=== PATIENT | female | born 1960 | race Caucasian/White ===

== ENCOUNTER 2021-03-15 00:08 | Inpatient (IN) ==
[2021-03-15] MEDS ORDERED: Naloxone 0.4 MG/ML INJ IVP PRN (04:15)
[2021-03-15] MEDS ORDERED: Melatonin 3 MG TABLET PO PRN (04:15)
[2021-03-15 05:03] LABS: Hematocrit 42.4 % (35.3-44.9); Hemoglobin 14.9 g/dL (11.5-15.4); Immature Granulocytes % 0.4 % (0-4); Lymphocytes # 0.8 K/mcL (0.6-4.6); Lymphocytes % 26.7 %; Mean Corpuscular HGB Conc 35.1 g/dL (31.6-35.5); Mean Corpuscular Hemoglobin 33.8 pg (28.0-33.3); Mean Corpuscular Volume 96.1 fL (83.0-100.0); Mean Platelet Volume 9.7 fL (9.4-12.4); Monocytes # 0.3 K/mcL (0.0-1.3); Monocytes % 9.5 %; Neutrophils # 1.8 K/mcL (1.6-8.9); Platelet Count 183 K/mcL (140-400); Red Blood Count 4.41 M/mcL (3.82-4.97); Red Cell Distribution Width 13.8 % (11.5-14.5); Segmented Neutrophils % 63.4 %; White Blood Count 2.9 K/mcL (4.3-11.1)
[2021-03-15 05:16] LABS: Albumin 3.5 g/dL (3.5-5.7); Albumin/Globulin Ratio 1.1 (1.1-2.2); Bilirubin,Total 0.4 mg/dL (0.3-1.0); Globulin 3.2 g/dL (2.4-3.5); Magnesium 2.2 mg/dL (1.6-2.6); Phosphorous 4.1 mg/dL (2.7-4.5); Potassium 4.5 mEq/L (3.5-5.1); Total Protein 6.7 g/dL (6.4-8.9)
[2021-03-15] MEDS ORDERED: 0.9 % Sodium Chloride 1,000 ML IVC SCH (05:45)
[2021-03-15] MEDS: *HR* Enoxaparin 40 MG/0.4 ML SYRINGE SQ SCH (06:24)
[2021-03-15] MEDS ORDERED: Remdesivir 200 MG in 0.9 % Sodium Chloride 100 ML IVPB ONE (07:00)
[2021-03-15] MEDS: Aspirin 81 MG TAB.CHEW PO SCH (08:10)
[2021-03-15] MEDS: Ipratropium 1 PUFF INHALER IH SCH ×3 (11:48→20:43)
[2021-03-16 01:50] LABS: Hematocrit 41.7 % (35.3-44.9); Hemoglobin 13.9 g/dL (11.5-15.4); Mean Corpuscular HGB Conc 33.3 g/dL (31.6-35.5); Mean Corpuscular Hemoglobin 32.1 pg (28.0-33.3); Mean Corpuscular Volume 96.3 fL (83.0-100.0); Mean Platelet Volume 9.5 fL (9.4-12.4); Platelet Count 203 K/mcL (140-400); Red Blood Count 4.33 M/mcL (3.82-4.97); Red Cell Distribution Width 13.8 % (11.5-14.5)
[2021-03-16 02:10] LABS: BUN/Creatinine Ratio 31 (6-26); Blood Urea Nitrogen 29 mg/dL (8-23); Calcium 8.3 mg/dL (8.6-10.3); Carbon Dioxide 21 mEq/L (23-29); Chloride 108 mEq/L (98-107); Glucose 128 mg/dL (70-105); Osmolality,Calculated 287 (280-300); Sodium 135 mEq/L (136-145); eGFR For African Americans > 60 (> 60); eGFR For Non-African Americans > 60 (> 60)
[2021-03-16 02:11] LABS: Albumin 3.4 g/dL (3.5-5.7); Albumin/Globulin Ratio 1.1 (1.1-2.2); Bilirubin,Direct 0.2 mg/dL (0.0-0.2); Bilirubin,Indirect 0.2 mg/dL (0.0-1.0); Bilirubin,Total 0.4 mg/dL (0.3-1.0); Total Protein 6.4 g/dL (6.4-8.9)
[2021-03-16] MEDS: Ipratropium 1 PUFF INHALER IH SCH ×4 (04:09→20:34)
[2021-03-16] MEDS: *HR* Enoxaparin 40 MG/0.4 ML SYRINGE SQ SCH (05:52)
[2021-03-16] MEDS: Remdesivir 100 MG in 0.9 % Sodium Chloride 100 ML IVPB SCH (05:52)
[2021-03-16] MEDS ORDERED: Nicotine 21 MG PATCH.TD24 TD PRN (12:38)
[2021-03-16] MEDS ORDERED: Furosemide 20 MG/2 ML VIAL IVP ONE ×2 (13:56→15:45)
[2021-03-16] MEDS ORDERED: Dexmedetomidine HCl 400 MCG/100 ML MLS IVC ONE (16:08)
[2021-03-16] MEDS: Aspirin 81 MG TAB.CHEW PO SCH (16:45)
[2021-03-16] MEDS: Dexmedetomidine HCl 400 MCG/100 ML MLS IVC SCH (16:45)
[2021-03-16] MEDS: Metoprolol XL (24 HR) Succ 25 MG TAB.ER.24H PO SCH (17:02)
[2021-03-16] MEDS: QUEtiapine Fumarate 25 MG TABLET PO SCH (22:34)
[2021-03-16] MEDS: lamoTRIgine 25 MG TABLET PO SCH (22:34)
[2021-03-17] MEDS: Ipratropium 1 PUFF INHALER IH SCH ×4 (03:41→20:21)
[2021-03-17] MEDS: *HR* Enoxaparin 40 MG/0.4 ML SYRINGE SQ SCH (05:41)
[2021-03-17] MEDS: Loratadine 10 MG TABLET PO SCH (08:07)
[2021-03-17] MEDS: Aspirin 81 MG TAB.CHEW PO SCH (08:07)
[2021-03-17] MEDS: Cholecalciferol (D-3) 1,000 UNIT (25MCG) TABLET PO SCH (08:07)
[2021-03-17] MEDS: Furosemide 20 MG/2 ML VIAL IVP SCH (08:07)
[2021-03-17] MEDS: Venlafaxine XR (24 HR) 150 MG CAP.ER.24H PO SCH (08:07)
[2021-03-17] MEDS: lamoTRIgine 25 MG TABLET PO SCH ×2 (08:07→22:01)
[2021-03-17] MEDS: Remdesivir 100 MG in 0.9 % Sodium Chloride 100 ML IVPB SCH (08:14)
[2021-03-17] MEDS: Fluticasone Propionate Nasal 50 MCG/SPRAY BOTTLE NS SCH (08:14)
[2021-03-17 10:51] LABS: Hematocrit 42.7 % (35.3-44.9); Hemoglobin 14.9 g/dL (11.5-15.4); Immature Granulocytes % 0.3 % (0-4); Lymphocytes # 1.2 K/mcL (0.6-4.6); Lymphocytes % 18.1 %; Mean Corpuscular HGB Conc 34.9 g/dL (31.6-35.5); Mean Corpuscular Hemoglobin 33.3 pg (28.0-33.3); Mean Corpuscular Volume 95.5 fL (83.0-100.0); Mean Platelet Volume 9.5 fL (9.4-12.4); Monocytes # 0.9 K/mcL (0.0-1.3); Monocytes % 14.1 %; Neutrophils # 4.4 K/mcL (1.6-8.9); Platelet Count 237 K/mcL (140-400); Red Blood Count 4.47 M/mcL (3.82-4.97); Red Cell Distribution Width 13.8 % (11.5-14.5); Segmented Neutrophils % 67.5 %
[2021-03-17 10:56] LABS: White Blood Count 6.5 K/mcL (4.3-11.1)
[2021-03-17 11:12] LABS: Alanine Aminotransferase 10 Units/L (7-52); Albumin 3.5 g/dL (3.5-5.7); Albumin/Globulin Ratio 1.2 (1.1-2.2); Alkaline Phosphatase 97 Units/L (34-104); Aspartate Amino Transferase 29 Units/L (13-39); BUN/Creatinine Ratio 40 (6-26); Bilirubin,Direct 0.2 mg/dL (0.0-0.2); Bilirubin,Indirect 0.3 mg/dL (0.0-1.0); Bilirubin,Total 0.5 mg/dL (0.3-1.0); Blood Urea Nitrogen 36 mg/dL (8-23); Calcium 8.4 mg/dL (8.6-10.3); Carbon Dioxide 26 mEq/L (23-29); Chloride 101 mEq/L (98-107); Glucose 131 mg/dL (70-105); Osmolality,Calculated 290 (280-300); Potassium 4.3 mEq/L (3.5-5.1); Sodium 135 mEq/L (136-145); Total Protein 6.5 g/dL (6.4-8.9); eGFR For African Americans > 60 (> 60); eGFR For Non-African Americans > 60 (> 60)
[2021-03-17] MEDS: Gabapentin 300 MG CAPSULE PO SCH ×2 (13:41→22:01)
[2021-03-17] MEDS: Dexmedetomidine HCl 400 MCG/100 ML MLS IVC SCH (18:15)
[2021-03-17] MEDS: Metoprolol XL (24 HR) Succ 25 MG TAB.ER.24H PO SCH (18:20)
[2021-03-17] MEDS: QUEtiapine Fumarate 25 MG TABLET PO SCH (22:02)
[2021-03-18] MEDS: Ipratropium 1 PUFF INHALER IH SCH ×4 (03:48→20:41)
[2021-03-18] MEDS: *HR* Enoxaparin 40 MG/0.4 ML SYRINGE SQ SCH (04:20)
[2021-03-18 04:59] LABS: Hematocrit 42.8 % (35.3-44.9); Hemoglobin 14.8 g/dL (11.5-15.4); Immature Granulocytes % 0.5 % (0-4); Lymphocytes # 1.1 K/mcL (0.6-4.6); Lymphocytes % 18.3 %; Mean Corpuscular HGB Conc 34.6 g/dL (31.6-35.5); Mean Corpuscular Volume 95.5 fL (83.0-100.0); Mean Platelet Volume 9.5 fL (9.4-12.4); Monocytes # 0.7 K/mcL (0.0-1.3); Neutrophils # 4.3 K/mcL (1.6-8.9); Platelet Count 251 K/mcL (140-400); Red Blood Count 4.48 M/mcL (3.82-4.97); Red Cell Distribution Width 13.6 % (11.5-14.5); Segmented Neutrophils % 69.2 %; White Blood Count 6.2 K/mcL (4.3-11.1)
[2021-03-18 05:18] LABS: BUN/Creatinine Ratio 44 (6-26); Blood Urea Nitrogen 35 mg/dL (8-23); Calcium 8.1 mg/dL (8.6-10.3); Carbon Dioxide 24 mEq/L (23-29); Chloride 105 mEq/L (98-107); Glucose 143 mg/dL (70-105); Osmolality,Calculated 286 (280-300); Potassium 4.7 mEq/L (3.5-5.1); Sodium 133 mEq/L (136-145); eGFR For African Americans > 60 (> 60); eGFR For Non-African Americans > 60 (> 60)
[2021-03-18 05:19] LABS: Albumin 3.5 g/dL (3.5-5.7); Albumin/Globulin Ratio 1.2 (1.1-2.2); Bilirubin,Direct 0.1 mg/dL (0.0-0.2); Bilirubin,Indirect 0.4 mg/dL (0.0-1.0); Bilirubin,Total 0.5 mg/dL (0.3-1.0); Globulin 2.9 g/dL (2.4-3.5); Total Protein 6.4 g/dL (6.4-8.9)
[2021-03-18] MEDS: Venlafaxine XR (24 HR) 150 MG CAP.ER.24H PO SCH (08:11)
[2021-03-18] MEDS: lamoTRIgine 25 MG TABLET PO SCH ×2 (08:11→20:41)
[2021-03-18] MEDS: Gabapentin 300 MG CAPSULE PO SCH ×3 (08:11→20:38)
[2021-03-18] MEDS: clonazePAM 0.5 MG TABLET PO PRN (08:11)
[2021-03-18] MEDS: Cholecalciferol (D-3) 1,000 UNIT (25MCG) TABLET PO SCH (08:11)
[2021-03-18] MEDS: Remdesivir 100 MG in 0.9 % Sodium Chloride 100 ML IVPB SCH (08:12)
[2021-03-18] MEDS: Aspirin 81 MG TAB.CHEW PO SCH (08:12)
[2021-03-18] MEDS: Furosemide 20 MG/2 ML VIAL IVP SCH (08:12)
[2021-03-18] MEDS: Loratadine 10 MG TABLET PO SCH (08:12)
[2021-03-18] MEDS: Fluticasone Propionate Nasal 50 MCG/SPRAY BOTTLE NS SCH (08:13)
[2021-03-18] MEDS: Dexmedetomidine HCl 400 MCG/100 ML MLS IVC SCH (16:00)
[2021-03-18] MEDS: Metoprolol XL (24 HR) Succ 25 MG TAB.ER.24H PO SCH (17:32)
[2021-03-18] MEDS: QUEtiapine Fumarate 25 MG TABLET PO SCH (20:41)
[2021-03-19 02:55] LABS: Hematocrit 42.5 % (35.3-44.9); Hemoglobin 14.8 g/dL (11.5-15.4); Immature Granulocytes % 0.6 % (0-4); Lymphocytes # 1.2 K/mcL (0.6-4.6); Lymphocytes % 17.1 %; Mean Corpuscular HGB Conc 34.8 g/dL (31.6-35.5); Mean Corpuscular Hemoglobin 32.7 pg (28.0-33.3); Mean Platelet Volume 9.7 fL (9.4-12.4); Monocytes # 0.8 K/mcL (0.0-1.3); Monocytes % 11.1 %; Neutrophils # 4.9 K/mcL (1.6-8.9); Platelet Count 239 K/mcL (140-400); Red Blood Count 4.52 M/mcL (3.82-4.97); Red Cell Distribution Width 13.2 % (11.5-14.5); Segmented Neutrophils % 71.2 %; White Blood Count 6.9 K/mcL (4.3-11.1)
[2021-03-19 03:19] LABS: BUN/Creatinine Ratio 44 (6-26); Blood Urea Nitrogen 34 mg/dL (8-23); Calcium 8.2 mg/dL (8.6-10.3); Carbon Dioxide 24 mEq/L (23-29); Chloride 104 mEq/L (98-107); Glucose 143 mg/dL (70-105); Osmolality,Calculated 282 (280-300); Potassium 4.6 mEq/L (3.5-5.1); Sodium 131 mEq/L (136-145); eGFR For African Americans > 60 (> 60); eGFR For Non-African Americans > 60 (> 60)
[2021-03-19] MEDS: Ipratropium 1 PUFF INHALER IH SCH ×4 (03:41→20:00)
[2021-03-19] MEDS: *HR* Enoxaparin 40 MG/0.4 ML SYRINGE SQ SCH (06:44)
[2021-03-19] MEDS: Fluticasone Propionate Nasal 50 MCG/SPRAY BOTTLE NS SCH (10:00)
[2021-03-19] MEDS: Furosemide 20 MG/2 ML VIAL IVP SCH (10:31)
[2021-03-19] MEDS: lamoTRIgine 25 MG TABLET PO SCH ×2 (10:31→21:23)
[2021-03-19] MEDS: Cholecalciferol (D-3) 1,000 UNIT (25MCG) TABLET PO SCH (10:31)
[2021-03-19] MEDS: Remdesivir 100 MG in 0.9 % Sodium Chloride 100 ML IVPB SCH (10:31)
[2021-03-19] MEDS: Aspirin 81 MG TAB.CHEW PO SCH (10:32)
[2021-03-19] MEDS: Venlafaxine XR (24 HR) 150 MG CAP.ER.24H PO SCH (10:32)
[2021-03-19] MEDS: Gabapentin 300 MG CAPSULE PO SCH ×3 (10:32→21:23)
[2021-03-19] MEDS: Loratadine 10 MG TABLET PO SCH (10:32)
[2021-03-19] MEDS: Dexmedetomidine HCl 400 MCG/100 ML MLS IVC SCH (10:34)
[2021-03-19 11:04] LABS: Magnesium 2.7 mg/dL (1.6-2.6); Phosphorous 3.2 mg/dL (2.7-4.5)
[2021-03-19] MEDS ORDERED: D10% in Water 500 ML IVC PRN (11:44)
[2021-03-19] MEDS ORDERED: *HR* Dextrose 50 % in Water (Syg) 50 ML SYRINGE IVP PRN (11:46)
[2021-03-19] MEDS ORDERED: D5% in Water 1,000 ML IVC PRN (11:46)
[2021-03-19] MEDS ORDERED: Dextrose Gel 15 GM/37.5 ML TUBE PO PRN ×2 (11:46)
[2021-03-19] MEDS: Insulin LISPRO 300 UNITS/3 ML VIAL SUBQ SCH ×3 (13:02→21:31)
[2021-03-19] MEDS ORDERED: Lidocaine -MPF 1% 5 ML AMPUL INFILT ONE (16:17)
[2021-03-19] MEDS ORDERED: Clinimix 5%-20% SOLUTION 2,000 ML with MVI, adult with vitamin K 10 ML, Sodium Phosph... IVC SCH ×2 (17:00)
[2021-03-19] MEDS ORDERED: Nitroglycerin 0.4 MG TAB.SUBL SL PRN (18:47)
[2021-03-19] MEDS: Metoprolol XL (24 HR) Succ 25 MG TAB.ER.24H PO SCH (18:52)
[2021-03-19] MEDS: Fat Emulsion 250 ML IVPB SCH (18:56)
[2021-03-19] MEDS: QUEtiapine Fumarate 25 MG TABLET PO SCH (21:23)
[2021-03-19] MEDS: Temazepam 15 MG CAPSULE PO SCH (21:23)
[2021-03-19] MEDS: BuPROPion SR (12 HR) 150 MG TABLET PO SCH (21:23)
[2021-03-20] MEDS: Insulin LISPRO 300 UNITS/3 ML VIAL SUBQ SCH ×6 (01:47→21:12)
[2021-03-20] MEDS: Ipratropium 1 PUFF INHALER IH SCH ×4 (03:56→20:11)
[2021-03-20] MEDS: *HR* Enoxaparin 40 MG/0.4 ML SYRINGE SQ SCH (05:23)
[2021-03-20] MEDS: Dexmedetomidine HCl 400 MCG/100 ML MLS IVC SCH (09:21)
[2021-03-20] MEDS: lamoTRIgine 25 MG TABLET PO SCH ×2 (09:29→21:11)
[2021-03-20] MEDS: Gabapentin 300 MG CAPSULE PO SCH ×3 (09:29→21:23)
[2021-03-20] MEDS: Cholecalciferol (D-3) 1,000 UNIT (25MCG) TABLET PO SCH (09:29)
[2021-03-20] MEDS: Furosemide 20 MG/2 ML VIAL IVP SCH (09:29)
[2021-03-20] MEDS: BuPROPion SR (12 HR) 150 MG TABLET PO SCH ×2 (09:29→21:11)
[2021-03-20] MEDS: Aspirin Enteric Coated 81 MG Tablet PO SCH (09:29)
[2021-03-20] MEDS: Venlafaxine XR (24 HR) 150 MG CAP.ER.24H PO SCH (09:29)
[2021-03-20] MEDS: Loratadine 10 MG TABLET PO SCH (09:29)
[2021-03-20] MEDS: Fluticasone Propionate Nasal 50 MCG/SPRAY BOTTLE NS SCH (09:55)
[2021-03-20 10:19] LABS: Alanine Aminotransferase 7 Units/L (7-52); Albumin 3.3 g/dL (3.5-5.7); Albumin/Globulin Ratio 1.1 (1.1-2.2); Alkaline Phosphatase 95 Units/L (34-104); Aspartate Amino Transferase 17 Units/L (13-39); BUN/Creatinine Ratio 42 (6-26); Bilirubin,Total 0.6 mg/dL (0.3-1.0); Blood Urea Nitrogen 29 mg/dL (8-23); Calcium 8.2 mg/dL (8.6-10.3); Carbon Dioxide 26 mEq/L (23-29); Chloride 100 mEq/L (98-107); Glucose 159 mg/dL (70-105); Magnesium 2.6 mg/dL (1.6-2.6); Osmolality,Calculated 285 (280-300); Phosphorous 2.5 mg/dL (2.7-4.5); Sodium 133 mEq/L (136-145); Total Protein 6.3 g/dL (6.4-8.9); eGFR For African Americans > 60 (> 60); eGFR For Non-African Americans > 60 (> 60)
[2021-03-20] MEDS ORDERED: Clinimix 5%-20% SOLUTION 2,000 ML, Parenteral Amino Acid 10% 0 ML with MVI, adult with... IVC SCH (17:00)
[2021-03-20] MEDS: Metoprolol XL (24 HR) Succ 25 MG TAB.ER.24H PO SCH (17:28)
[2021-03-20] MEDS: Clinimix 5%-20% SOLUTION 2,000 ML with MVI, adult with vitamin K 10 ML, Sodium Phosph... IVC SCH (17:46)
[2021-03-20] MEDS: QUEtiapine Fumarate 25 MG TABLET PO SCH (21:11)
[2021-03-20] MEDS: Temazepam 15 MG CAPSULE PO SCH (21:11)
[2021-03-21 03:17] LABS: Hematocrit 42.7 % (35.3-44.9); Hemoglobin 14.9 g/dL (11.5-15.4); Mean Corpuscular HGB Conc 34.9 g/dL (31.6-35.5); Mean Corpuscular Hemoglobin 32.5 pg (28.0-33.3); Mean Corpuscular Volume 93.2 fL (83.0-100.0); Mean Platelet Volume 10.4 fL (9.4-12.4); Platelet Count 261 K/mcL (140-400); Red Blood Count 4.58 M/mcL (3.82-4.97); Red Cell Distribution Width 12.8 % (11.5-14.5); White Blood Count 8.9 K/mcL (4.3-11.1)
[2021-03-21 03:23] LABS: Alanine Aminotransferase 7 Units/L (7-52); Albumin 3.4 g/dL (3.5-5.7); Albumin/Globulin Ratio 1.1 (1.1-2.2); Alkaline Phosphatase 91 Units/L (34-104); Aspartate Amino Transferase 18 Units/L (13-39); BUN/Creatinine Ratio 43 (6-26); Bilirubin,Total 0.6 mg/dL (0.3-1.0); Blood Urea Nitrogen 32 mg/dL (8-23); Calcium 8.6 mg/dL (8.6-10.3); Carbon Dioxide 28 mEq/L (23-29); Chloride 99 mEq/L (98-107); Glucose 196 mg/dL (70-105); Magnesium 2.6 mg/dL (1.6-2.6); Osmolality,Calculated 290 (280-300); Phosphorous 3.1 mg/dL (2.7-4.5); Sodium 134 mEq/L (136-145); Total Protein 6.4 g/dL (6.4-8.9); eGFR For African Americans > 60 (> 60); eGFR For Non-African Americans > 60 (> 60)
[2021-03-21 03:24] LABS: C-Reactive Protein 52 mg/L (Less than 10); Lactate Dehydrogenase 544 Units/L (140-271)
[2021-03-21] MEDS: Ipratropium 1 PUFF INHALER IH SCH ×4 (04:02→19:43)
[2021-03-21] MEDS: Insulin LISPRO 300 UNITS/3 ML VIAL SUBQ SCH ×6 (04:07→21:00)
[2021-03-21] MEDS: *HR* Enoxaparin 40 MG/0.4 ML SYRINGE SQ SCH (06:08)
[2021-03-21] MEDS: lamoTRIgine 25 MG TABLET PO SCH ×2 (09:02→20:59)
[2021-03-21] MEDS: Cholecalciferol (D-3) 1,000 UNIT (25MCG) TABLET PO SCH (09:02)
[2021-03-21] MEDS: Gabapentin 300 MG CAPSULE PO SCH ×3 (09:02→21:00)
[2021-03-21] MEDS: BuPROPion SR (12 HR) 150 MG TABLET PO SCH ×2 (09:02→20:59)
[2021-03-21] MEDS: Venlafaxine XR (24 HR) 150 MG CAP.ER.24H PO SCH (09:02)
[2021-03-21] MEDS: Loratadine 10 MG TABLET PO SCH (09:03)
[2021-03-21] MEDS: Aspirin Enteric Coated 81 MG Tablet PO SCH (09:03)
[2021-03-21] MEDS: Furosemide 20 MG/2 ML VIAL IVP SCH (09:03)
[2021-03-21] MEDS: Fluticasone Propionate Nasal 50 MCG/SPRAY BOTTLE NS SCH (09:03)
[2021-03-21] MEDS: Dexamethasone Sodium Phos/PF 10 MG/ML VIAL IVP SCH (09:03)
[2021-03-21] MEDS ORDERED: Isovue-370 500 ML BOTTLE IVP ONE (10:22)
[2021-03-21] MEDS: Clinimix 5%-20% SOLUTION 2,000 ML with MVI, adult with vitamin K 10 ML, Sodium Phosph... IVC SCH (16:55)
[2021-03-21] MEDS ORDERED: Clinimix 5%-20% SOLUTION 2,000 ML with MVI, adult with vitamin K 10 ML, Sodium Phosph... IVC SCH (17:00)
[2021-03-21] MEDS: clonazePAM 0.5 MG TABLET PO PRN (17:30)
[2021-03-21] MEDS: Metoprolol XL (24 HR) Succ 25 MG TAB.ER.24H PO SCH (17:30)
[2021-03-21] MEDS: QUEtiapine Fumarate 25 MG TABLET PO SCH (21:00)
[2021-03-21] MEDS: Temazepam 15 MG CAPSULE PO SCH (21:00)
[2021-03-22] MEDS: Insulin LISPRO 300 UNITS/3 ML VIAL SUBQ SCH ×7 (00:46→23:44)
[2021-03-22] MEDS: Ipratropium 1 PUFF INHALER IH SCH ×4 (03:37→21:10)
[2021-03-22 04:43] LABS: Hematocrit 43.6 % (35.3-44.9); Hemoglobin 15.3 g/dL (11.5-15.4); Mean Corpuscular HGB Conc 35.1 g/dL (31.6-35.5); Mean Corpuscular Hemoglobin 32.8 pg (28.0-33.3); Mean Corpuscular Volume 93.6 fL (83.0-100.0); Mean Platelet Volume 10.5 fL (9.4-12.4); Platelet Count 305 K/mcL (140-400); Red Blood Count 4.66 M/mcL (3.82-4.97); Red Cell Distribution Width 12.8 % (11.5-14.5)
[2021-03-22 05:00] LABS: Alanine Aminotransferase 6 Units/L (7-52); Albumin 3.4 g/dL (3.5-5.7); Albumin/Globulin Ratio 1.1 (1.1-2.2); Alkaline Phosphatase 99 Units/L (34-104); Aspartate Amino Transferase 20 Units/L (13-39); BUN/Creatinine Ratio 45 (6-26); Bilirubin,Total 0.7 mg/dL (0.3-1.0); Blood Urea Nitrogen 31 mg/dL (8-23); Calcium 8.7 mg/dL (8.6-10.3); Carbon Dioxide 28 mEq/L (23-29); Chloride 97 mEq/L (98-107); Globulin 3.2 g/dL (2.4-3.5); Glucose 80 mg/dL (70-105); Magnesium 2.1 mg/dL (1.6-2.6); Osmolality,Calculated 282 (280-300); Potassium 3.7 mEq/L (3.5-5.1); Sodium 133 mEq/L (136-145); Total Protein 6.6 g/dL (6.4-8.9); eGFR For African Americans > 60 (> 60); eGFR For Non-African Americans > 60 (> 60)
[2021-03-22] MEDS ORDERED: *HR* Midazolam HCl 2 MG/2 ML VIAL IVP ONE (05:53)
[2021-03-22] MEDS ORDERED: *HR* Rocuronium Bromide 50 MG/5 ML VIAL IVP ONE (05:53)
[2021-03-22] MEDS ORDERED: *HR* Succinylcholine 200 MG/10 ML VIAL IVP ONE (05:53)
[2021-03-22] MEDS ORDERED: *HR* Etomidate 40 MG/20 ML VIAL IVP ONE (05:53)
[2021-03-22] MEDS ORDERED: *HR* Midazolam HCl 5 MG/5 ML VIAL IVP ONE (05:53)
[2021-03-22] MEDS: *HR* Enoxaparin 40 MG/0.4 ML SYRINGE SQ SCH (06:04)
[2021-03-22] MEDS: Loratadine 10 MG TABLET PO SCH (07:32)
[2021-03-22] MEDS: Venlafaxine XR (24 HR) 150 MG CAP.ER.24H PO SCH (07:32)
[2021-03-22] MEDS: Aspirin Enteric Coated 81 MG Tablet PO SCH (07:32)
[2021-03-22] MEDS: lamoTRIgine 25 MG TABLET PO SCH ×2 (07:33→20:56)
[2021-03-22] MEDS: Cholecalciferol (D-3) 1,000 UNIT (25MCG) TABLET PO SCH (07:33)
[2021-03-22] MEDS: Fluticasone Propionate Nasal 50 MCG/SPRAY BOTTLE NS SCH (07:33)
[2021-03-22] MEDS: Gabapentin 300 MG CAPSULE PO SCH ×3 (07:33→20:56)
[2021-03-22] MEDS: BuPROPion SR (12 HR) 150 MG TABLET PO SCH ×2 (07:33→20:56)
[2021-03-22] MEDS: Midazolam HCl 50 MG/100 ML IV.SOLN IVC SCH ×2 (08:58→15:52)
[2021-03-22] MEDS: FentaNYL (PF) 1,000 MCG/100 ML IV.SOLN IVC SCH ×3 (08:59→20:55)
[2021-03-22] MEDS: Cisatracurium 200 MG in 0.9 % Sodium Chloride 180 ML IVC SCH ×2 (08:59→20:53)
[2021-03-22] MEDS ORDERED: *HR* Midazolam HCl 2 MG/2 ML VIAL ONE (09:02)
[2021-03-22] MEDS: Dexamethasone Sodium Phos/PF 10 MG/ML VIAL IVP SCH (09:47)
[2021-03-22] MEDS: Furosemide 20 MG/2 ML VIAL IVP SCH (09:47)
[2021-03-22] MEDS ORDERED: Artificial Tears SOLN 15 ML BOTTLE BOTH EYES PRN (10:05)
[2021-03-22] MEDS ORDERED: Naloxone 0.4 MG/ML INJ IVP PRN (10:05)
[2021-03-22] MEDS ORDERED: Furosemide 20 MG/2 ML VIAL IVP ONE (10:10)
[2021-03-22 11:14] LABS: ABG Base Excess 1 mEq/L (-2 to 3); ABG HCO3 30 mEq/L (21-27); ABG Oxygen Saturation 91 % (95-98); ABG PCO2 65 mmHg (35-45); ABG PH 7.27 pH Units (7.32-7.45); ABG PO2 71 mmHg (85-104); ABG TCO2 32 mEq/L (20-26); Blood Gas Modality ASSIST CONTROL; Blood Gas VT 400 cc
[2021-03-22] MEDS: Chlorhexidine Rinse 15 ML MOUTHWASH MM SCH ×2 (11:18→20:55)
[2021-03-22] MEDS: Pantoprazole 40 MG VIAL IVP SCH (11:18)
[2021-03-22] MEDS: Artificial Tears SOLN 15 ML BOTTLE BOTH EYES SCH ×4 (11:19→23:44)
[2021-03-22] MEDS ORDERED: Clinimix 5%-20% SOLUTION 2,000 ML with MVI, adult with vitamin K 10 ML, Sodium Phosph... IVC SCH (17:00)
[2021-03-22] MEDS: Metoprolol XL (24 HR) Succ 25 MG TAB.ER.24H PO SCH (18:30)
[2021-03-22] MEDS: Temazepam 15 MG CAPSULE PO SCH (20:56)
[2021-03-22] MEDS: QUEtiapine Fumarate 25 MG TABLET PO SCH (20:56)
[2021-03-23 00:12] LABS: ABG Base Excess 1 mEq/L (-2 to 3); ABG HCO3 32 mEq/L (21-27); ABG Oxygen Saturation 91 % (95-98); ABG PCO2 79 mmHg (35-45); ABG PH 7.21 pH Units (7.32-7.45); ABG PO2 77 mmHg (85-104); ABG TCO2 34 mEq/L (20-26); Blood Gas Modality ASSIST CONTROL; Blood Gas VT 360 cc
[2021-03-23] MEDS: Ipratropium 1 PUFF INHALER IH SCH ×4 (03:03→21:18)
[2021-03-23] MEDS: Artificial Tears SOLN 15 ML BOTTLE BOTH EYES SCH ×5 (03:24→20:15)
[2021-03-23] MEDS: Insulin LISPRO 300 UNITS/3 ML VIAL SUBQ SCH ×5 (03:24→21:14)
[2021-03-23] MEDS: Midazolam HCl 50 MG/100 ML IV.SOLN IVC SCH ×2 (03:42→12:47)
[2021-03-23] MEDS: FentaNYL (PF) 1,000 MCG/100 ML IV.SOLN IVC SCH ×4 (03:43→22:45)
[2021-03-23 03:54] LABS: VBG Ionized Calcium 1.03 mmol/L (1.15-1.35)
[2021-03-23 03:57] LABS: Basophils % 0.2 %; Eosinophils % 0.1 %; Hematocrit 36.7 % (35.3-44.9); Hemoglobin 12.2 g/dL (11.5-15.4); Immature Granulocytes % 1.4 % (0-4); Lymphocytes # 0.7 K/mcL (0.6-4.6); Lymphocytes % 6.2 %; Mean Corpuscular HGB Conc 33.2 g/dL (31.6-35.5); Mean Corpuscular Hemoglobin 32.9 pg (28.0-33.3); Mean Corpuscular Volume 98.9 fL (83.0-100.0); Mean Platelet Volume 10.8 fL (9.4-12.4); Monocytes # 0.5 K/mcL (0.0-1.3); Monocytes % 4.4 %; Neutrophils # 10.2 K/mcL (1.6-8.9); Platelet Count 227 K/mcL (140-400); Red Blood Count 3.71 M/mcL (3.82-4.97); Red Cell Distribution Width 13.2 % (11.5-14.5); Segmented Neutrophils % 87.7 %; White Blood Count 11.6 K/mcL (4.3-11.1)
[2021-03-23 04:43] LABS: ABG Base Excess 3 mEq/L (-2 to 3); ABG HCO3 33 mEq/L (21-27); ABG Oxygen Saturation 100 % (95-98); ABG PCO2 75 mmHg (35-45); ABG PH 7.25 pH Units (7.32-7.45); ABG PO2 224 mmHg (85-104); ABG TCO2 35 mEq/L (20-26); Blood Gas Modality ASSIST CONTROL; Blood Gas VT 360 cc
[2021-03-23] MEDS: *HR* Enoxaparin 40 MG/0.4 ML SYRINGE SQ SCH ×2 (05:07→20:15)
[2021-03-23] MEDS: Calcium Gluconate 1gm/50mL 1 GM/50 ML BAG IVPB SCH ×2 (05:42→06:31)
[2021-03-23] MEDS: Loratadine 10 MG TABLET PO SCH (07:40)
[2021-03-23] MEDS: BuPROPion SR (12 HR) 150 MG TABLET PO SCH ×2 (07:40→20:16)
[2021-03-23] MEDS: Gabapentin 300 MG CAPSULE PO SCH ×3 (07:40→20:16)
[2021-03-23] MEDS: Chlorhexidine Rinse 15 ML MOUTHWASH MM SCH ×2 (07:40→20:15)
[2021-03-23] MEDS: lamoTRIgine 25 MG TABLET PO SCH ×2 (07:40→20:16)
[2021-03-23] MEDS: Furosemide 40 MG/4 ML VIAL IVP SCH (07:41)
[2021-03-23] MEDS: Dexamethasone Sodium Phos/PF 10 MG/ML VIAL IVP SCH (07:41)
[2021-03-23] MEDS: Pantoprazole 40 MG VIAL IVP SCH (07:41)
[2021-03-23] MEDS: Cholecalciferol (D-3) 1,000 UNIT (25MCG) TABLET PO SCH (07:45)
[2021-03-23] MEDS: Cisatracurium 200 MG in 0.9 % Sodium Chloride 180 ML IVC SCH (08:30)
[2021-03-23 10:49] LABS: Alanine Aminotransferase 6 Units/L (7-52); Albumin 3.3 g/dL (3.5-5.7); Albumin/Globulin Ratio 1.1 (1.1-2.2); Alkaline Phosphatase 83 Units/L (34-104); Aspartate Amino Transferase 12 Units/L (13-39); BUN/Creatinine Ratio 39 (6-26); Bilirubin,Total 0.6 mg/dL (0.3-1.0); Blood Urea Nitrogen 32 mg/dL (8-23); Calcium 9.1 mg/dL (8.6-10.3); Carbon Dioxide 33 mEq/L (23-29); Chloride 97 mEq/L (98-107); Glucose 196 mg/dL (70-105); Magnesium 1.9 mg/dL (1.6-2.6); Osmolality,Calculated 292 (280-300); Phosphorous 3.2 mg/dL (2.7-4.5); Potassium 3.9 mEq/L (3.5-5.1); Sodium 135 mEq/L (136-145); Total Protein 6.3 g/dL (6.4-8.9); eGFR For African Americans > 60 (> 60); eGFR For Non-African Americans > 60 (> 60)
[2021-03-23] MEDS: Fluticasone Propionate Nasal 50 MCG/SPRAY BOTTLE NS SCH (12:39)
[2021-03-23] MEDS: Venlafaxine XR (24 HR) 150 MG CAP.ER.24H PO SCH (12:43)
[2021-03-23] MEDS: Aspirin Enteric Coated 81 MG Tablet PO SCH (12:43)
[2021-03-23] MEDS ORDERED: Clinimix 5%-20% SOLUTION 2,000 ML with MVI, adult with vitamin K 10 ML, Sodium Phosph... IVC SCH (17:00)
[2021-03-23] MEDS ORDERED: *HR* Metoprolol 5 MG/5 ML VIAL IVP SCH (18:00)
[2021-03-23] MEDS: Metoprolol XL (24 HR) Succ 25 MG TAB.ER.24H PO SCH (18:11)
[2021-03-23] MEDS: QUEtiapine Fumarate 25 MG TABLET PO SCH (20:16)
[2021-03-23] MEDS: Temazepam 15 MG CAPSULE PO SCH (20:16)
[2021-03-23] MEDS ORDERED: Ringers Solution, Lactated 500 ML IVC ONE ×2 (22:13→23:37)
[2021-03-23] MEDS ORDERED: Ringers Solution, Lactated 500 ML ONE (22:18)
[2021-03-24] MEDS: Cisatracurium 200 MG in 0.9 % Sodium Chloride 180 ML IVC SCH (01:48)
[2021-03-24] MEDS: Insulin LISPRO 300 UNITS/3 ML VIAL SUBQ SCH ×6 (01:49→20:11)
[2021-03-24] MEDS: Midazolam HCl 50 MG/100 ML IV.SOLN IVC SCH ×2 (01:50→13:38)
[2021-03-24] MEDS: Ipratropium 1 PUFF INHALER IH SCH ×4 (03:14→20:15)
[2021-03-24 04:11] LABS: ABG Base Excess -1 mEq/L (-2 to 3); ABG HCO3 29 mEq/L (21-27); ABG Oxygen Saturation 81 % (95-98); ABG PCO2 75 mmHg (35-45); ABG PO2 57 mmHg (85-104); ABG TCO2 32 mEq/L (20-26); Blood Gas VT 360 cc
[2021-03-24 04:19] LABS: Hematocrit 38.6 % (35.3-44.9); Hemoglobin 12.7 g/dL (11.5-15.4); Mean Corpuscular HGB Conc 32.9 g/dL (31.6-35.5); Mean Corpuscular Volume 100.3 fL (83.0-100.0); Mean Platelet Volume 11.1 fL (9.4-12.4); Platelet Count 231 K/mcL (140-400); Red Blood Count 3.85 M/mcL (3.82-4.97); Red Cell Distribution Width 13.2 % (11.5-14.5); White Blood Count 10.6 K/mcL (4.3-11.1)
[2021-03-24 04:40] LABS: Albumin 2.8 g/dL (3.5-5.7); Bilirubin,Total 0.5 mg/dL (0.3-1.0); Calcium 8.2 mg/dL (8.6-10.3); Globulin 2.8 g/dL (2.4-3.5); Magnesium 2.1 mg/dL (1.6-2.6); Phosphorous 4.7 mg/dL (2.7-4.5); Total Protein 5.6 g/dL (6.4-8.9)
[2021-03-24] MEDS: FentaNYL (PF) 1,000 MCG/100 ML IV.SOLN IVC SCH ×3 (05:56→19:35)
[2021-03-24] MEDS: Artificial Tears SOLN 15 ML BOTTLE BOTH EYES SCH ×6 (07:16→20:13)
[2021-03-24] MEDS: Dexamethasone Sodium Phos/PF 10 MG/ML VIAL IVP SCH (07:43)
[2021-03-24] MEDS: Pantoprazole 40 MG VIAL IVP SCH (07:43)
[2021-03-24] MEDS: Loratadine 10 MG TABLET PO SCH (07:43)
[2021-03-24] MEDS: lamoTRIgine 25 MG TABLET PO SCH ×2 (07:43→20:14)
[2021-03-24] MEDS: Aspirin 81 MG TAB.CHEW PO SCH (07:43)
[2021-03-24] MEDS: Furosemide 40 MG/4 ML VIAL IVP SCH (07:43)
[2021-03-24] MEDS: Cholecalciferol (D-3) 1,000 UNIT (25MCG) TABLET PO SCH (07:43)
[2021-03-24] MEDS: Chlorhexidine Rinse 15 ML MOUTHWASH MM SCH ×2 (07:43→20:13)
[2021-03-24] MEDS: Gabapentin 300 MG CAPSULE PO SCH (07:43)
[2021-03-24] MEDS: *HR* Enoxaparin 40 MG/0.4 ML SYRINGE SQ SCH ×2 (07:43→20:14)
[2021-03-24] MEDS: Fluticasone Propionate Nasal 50 MCG/SPRAY BOTTLE NS SCH (07:45)
[2021-03-24] MEDS: BuPROPion SR (12 HR) 150 MG TABLET PO SCH (07:45)
[2021-03-24] MEDS: Venlafaxine XR (24 HR) 150 MG CAP.ER.24H PO SCH (07:45)
[2021-03-24 08:15] LABS: ABG Base Excess -2 mEq/L (-2 to 3); ABG HCO3 30 mEq/L (21-27); ABG Oxygen Saturation 89 % (95-98); ABG PCO2 84 mmHg (35-45); ABG PH 7.16 pH Units (7.32-7.45); ABG PO2 75 mmHg (85-104); ABG TCO2 32 mEq/L (20-26)
[2021-03-24] MEDS: Norepinephrine 4 MG/254 ML IV.SOLN IVC SCH (11:59)
[2021-03-24] MEDS: Dexmedetomidine HCl 400 MCG/100 ML MLS IVC SCH ×3 (11:59→19:06)
[2021-03-24 14:23] LABS: ABG Base Excess -3 mEq/L (-2 to 3); ABG HCO3 26 mEq/L (21-27); ABG Oxygen Saturation 93 % (95-98); ABG PCO2 70 mmHg (35-45); ABG PH 7.19 pH Units (7.32-7.45); ABG PO2 87 mmHg (85-104); ABG TCO2 29 mEq/L (20-26); Blood Gas Modality ASSIST CONTROL; Blood Gas VT 400 cc
[2021-03-24] MEDS ORDERED: 0.9 % Sodium Chloride 1,000 ML ONE (14:28)
[2021-03-24] MEDS ORDERED: Clinimix 5%-20% SOLUTION 2,000 ML with MVI, adult with vitamin K 10 ML, Sodium Acetat... IVC SCH (17:00)
[2021-03-24 18:14] LABS: ABG Base Excess -3 mEq/L (-2 to 3); ABG HCO3 28 mEq/L (21-27); ABG Oxygen Saturation 99 % (95-98); ABG PCO2 78 mmHg (35-45); ABG PH 7.16 pH Units (7.32-7.45); ABG PO2 184 mmHg (85-104); ABG TCO2 30 mEq/L (20-26); Blood Gas Modality ASSIST CONTROL; Blood Gas VT 400 cc
[2021-03-24 19:59] LABS: ABG Base Excess -1 mEq/L (-2 to 3); ABG HCO3 30 mEq/L (21-27); ABG Oxygen Saturation 99 % (95-98); ABG PCO2 81 mmHg (35-45); ABG PH 7.17 pH Units (7.32-7.45); ABG PO2 211 mmHg (85-104); ABG TCO2 32 mEq/L (20-26); Blood Gas VT 420 cc
[2021-03-24] MEDS: Temazepam 15 MG CAPSULE PO SCH (20:13)
[2021-03-24] MEDS: QUEtiapine Fumarate 25 MG TABLET PO SCH (20:13)
[2021-03-24] MEDS: Gabapentin 300 MG CAPSULE GTUBE SCH (20:14)
[2021-03-24 21:22] LABS: ABG Base Excess -2 mEq/L (-2 to 3); ABG HCO3 29 mEq/L (21-27); ABG Oxygen Saturation 100 % (95-98); ABG PCO2 81 mmHg (35-45); ABG PH 7.16 pH Units (7.32-7.45); ABG PO2 223 mmHg (85-104); ABG TCO2 31 mEq/L (20-26); Blood Gas VT 450 cc
[2021-03-25] LABS: ABG Base Excess -2 mEq/L (-2 to 3); ABG HCO3 29 mEq/L (21-27); ABG Oxygen Saturation 100 % (95-98); ABG PCO2 79 mmHg (35-45); ABG PH 7.18 pH Units (7.32-7.45); ABG PO2 263 mmHg (85-104); ABG TCO2 32 mEq/L (20-26); Blood Gas VT 450 cc
[2021-03-25] MEDS: Insulin LISPRO 300 UNITS/3 ML VIAL SUBQ SCH ×7 (00:23→23:41)
[2021-03-25] MEDS: Artificial Tears SOLN 15 ML BOTTLE BOTH EYES SCH ×7 (00:23→23:43)
[2021-03-25] MEDS ORDERED: Sodium Bicarbonate 75 MEQ in 0.45 % Sodium Chloride 1,000 ML IVC SCH (01:00)
[2021-03-25 02:40] LABS: Hematocrit 36.8 % (35.3-44.9); Hemoglobin 12.5 g/dL (11.5-15.4); Mean Corpuscular Hemoglobin 33.5 pg (28.0-33.3); Mean Corpuscular Volume 98.7 fL (83.0-100.0); Mean Platelet Volume 11.1 fL (9.4-12.4); Platelet Count 266 K/mcL (140-400); Red Blood Count 3.73 M/mcL (3.82-4.97); White Blood Count 7.2 K/mcL (4.3-11.1)
[2021-03-25 02:53] LABS: Calcium 7.7 mg/dL (8.6-10.3); Phosphorous 4.5 mg/dL (2.7-4.5); Potassium 3.9 mEq/L (3.5-5.1)
[2021-03-25] MEDS: Norepinephrine 4 MG/254 ML IV.SOLN IVC SCH (03:06)
[2021-03-25] MEDS: Midazolam HCl 50 MG/100 ML IV.SOLN IVC SCH ×2 (03:07→17:26)
[2021-03-25] MEDS: Dexmedetomidine HCl 400 MCG/100 ML MLS IVC SCH ×3 (03:08→19:58)
[2021-03-25] MEDS: FentaNYL (PF) 1,000 MCG/100 ML IV.SOLN IVC SCH ×3 (03:08→22:26)
[2021-03-25] MEDS: Ipratropium 1 PUFF INHALER IH SCH ×4 (04:13→19:46)
[2021-03-25 04:22] LABS: ABG Base Excess -1 mEq/L (-2 to 3); ABG HCO3 29 mEq/L (21-27); ABG Oxygen Saturation 100 % (95-98); ABG PCO2 78 mmHg (35-45); ABG PH 7.18 pH Units (7.32-7.45); ABG PO2 303 mmHg (85-104); ABG TCO2 31 mEq/L (20-26); Blood Gas VT 450 cc
[2021-03-25] MEDS: Cisatracurium 200 MG in 0.9 % Sodium Chloride 180 ML IVC SCH (04:34)
[2021-03-25] MEDS ORDERED: Sodium Bicarbonate 150 MEQ in D5% in Water 1,000 ML IVC SCH (05:00)
[2021-03-25 06:17] LABS: VBG Ionized Calcium 1.14 mmol/L (1.15-1.35)
[2021-03-25] MEDS: lamoTRIgine 25 MG TABLET PO SCH ×2 (08:12→19:56)
[2021-03-25] MEDS: Cholecalciferol (D-3) 1,000 UNIT (25MCG) TABLET PO SCH (08:12)
[2021-03-25] MEDS: Gabapentin 300 MG CAPSULE GTUBE SCH ×2 (08:12→19:56)
[2021-03-25] MEDS: Aspirin 81 MG TAB.CHEW PO SCH (08:12)
[2021-03-25] MEDS: Pantoprazole 40 MG VIAL IVP SCH (08:13)
[2021-03-25] MEDS: *HR* Enoxaparin 40 MG/0.4 ML SYRINGE SQ SCH (08:13)
[2021-03-25] MEDS: Dexamethasone Sodium Phos/PF 10 MG/ML VIAL IVP SCH (08:14)
[2021-03-25] MEDS: Chlorhexidine Rinse 15 ML MOUTHWASH MM SCH ×2 (08:15→19:55)
[2021-03-25] MEDS ORDERED: Insulin DETEMIR 100 UNIT/ML X5UNITS SUBQ ONE (10:00)
[2021-03-25 15:29] LABS: ABG Base Excess 3 mEq/L (-2 to 3); ABG HCO3 32 mEq/L (21-27); ABG Oxygen Saturation 91 % (95-98); ABG PCO2 73 mmHg (35-45); ABG PH 7.25 pH Units (7.32-7.45); ABG PO2 74 mmHg (85-104); ABG TCO2 34 mEq/L (20-26); Blood Gas Modality ASSIST CONTROL; Blood Gas VT 450 cc
[2021-03-25 16:24] LABS: Amorphous Sediment,Urine Few per hpf (None-Few); Bilirubin,Urine Negative (Negative); Blood,Urine Moderate (Negative); Clarity,Urine Ex.Turbid (Clear); Color,Urine Yellow (Yellow); Glucose,Urine (UA) 200 mg/dL (Normal); Hyaline Casts,Urine Many per lpf (None Seen); Ketones,Urine Negative (Negative); Leukocyte Esterase,Urine Trace (Negative); Mucus,Urine Moderate per lpf (None-Few); Nitrite,Urine Negative (Negative); PH,Urine 5.5 pH Units (5.0-8.0); Protein,Urine 30 mg/dL (Neg-Trace); RBC,Urine 15-30 per hpf (0-3); Specific Gravity,Urine 1.013 (1.010-1.025); Squamous Epithelial Cell,Urine Few per hpf (None-Few); Urobilinogen,Urine Normal (Normal); WBC,Urine 50-100 per hpf (0-3)
[2021-03-25] MEDS ORDERED: Clinimix E 5%-15% SOLUTION 2,000 ML with MVI, adult with vitamin K 10 ML, ZN/CU/MN/SE... IVC SCH (17:00)
[2021-03-25] MEDS: Docusate Oral Soln 100 MG/10 ML UDC GTUBE SCH (19:55)
[2021-03-25] MEDS: QUEtiapine Fumarate 25 MG TABLET PO SCH (19:56)
[2021-03-25] MEDS ORDERED: *HR* Enoxaparin 30 MG/0.3 ML SYRINGE SQ SCH (21:00)
[2021-03-26] MEDS: Dexmedetomidine HCl 400 MCG/100 ML MLS IVC SCH ×5 (02:46→21:29)
[2021-03-26] MEDS: Midazolam HCl 50 MG/100 ML IV.SOLN IVC SCH ×3 (03:15→16:51)
[2021-03-26] MEDS: Ipratropium 1 PUFF INHALER IH SCH ×4 (03:42→19:57)
[2021-03-26] MEDS: Insulin LISPRO 300 UNITS/3 ML VIAL SUBQ SCH ×5 (03:45→20:11)
[2021-03-26] MEDS: Artificial Tears SOLN 15 ML BOTTLE BOTH EYES SCH ×5 (03:58→21:26)
[2021-03-26] MEDS ORDERED: Acetaminophen IV 500 MG/50 ML BAG IVPB ONE (04:00)
[2021-03-26 04:29] LABS: ABG Base Excess 3 mEq/L (-2 to 3); ABG HCO3 34 mEq/L (21-27); ABG Oxygen Saturation 80 % (95-98); ABG PCO2 90 mmHg (35-45); ABG PH 7.19 pH Units (7.32-7.45); ABG PO2 58 mmHg (85-104); ABG TCO2 37 mEq/L (20-26); Blood Gas VT 450 cc
[2021-03-26 05:04] LABS: Basophils % 0.2 %; Hematocrit 27.7 % (35.3-44.9); Immature Granulocytes % 1.1 % (0-4); Lymphocytes # 0.3 K/mcL (0.6-4.6); Lymphocytes % 6.3 %; Mean Corpuscular HGB Conc 32.9 g/dL (31.6-35.5); Mean Corpuscular Hemoglobin 32.9 pg (28.0-33.3); Mean Platelet Volume 11.1 fL (9.4-12.4); Monocytes # 0.8 K/mcL (0.0-1.3); Monocytes % 14.2 %; Neutrophils # 4.2 K/mcL (1.6-8.9); Platelet Count 158 K/mcL (140-400); Red Blood Count 2.77 M/mcL (3.82-4.97); Red Cell Distribution Width 13.1 % (11.5-14.5); Segmented Neutrophils % 78.2 %; White Blood Count 5.4 K/mcL (4.3-11.1)
[2021-03-26 05:11] LABS: Hemoglobin 9.1 g/dL (11.5-15.4)
[2021-03-26] MEDS: Cisatracurium 200 MG in 0.9 % Sodium Chloride 180 ML IVC SCH ×4 (05:13→20:00)
[2021-03-26] MEDS: FentaNYL (PF) 1,000 MCG/100 ML IV.SOLN IVC SCH ×4 (05:16→21:28)
[2021-03-26 05:27] LABS: Albumin 1.9 g/dL (3.5-5.7); Bilirubin,Direct 0.2 mg/dL (0.0-0.2); Bilirubin,Indirect 0.2 mg/dL (0.0-1.0); Bilirubin,Total 0.4 mg/dL (0.3-1.0); Calcium 5.8 mg/dL (8.6-10.3); Globulin 1.9 g/dL (2.4-3.5); Magnesium 1.6 mg/dL (1.6-2.6); Phosphorous 3.1 mg/dL (2.7-4.5); Potassium 3.5 mEq/L (3.5-5.1); Total Protein 3.8 g/dL (6.4-8.9); Uric Acid 2.7 mg/dL (2.3-7.6)
[2021-03-26 05:28] LABS: Platelet Estimate Normal (Normal)
[2021-03-26] MEDS ORDERED: Calcium Gluconate 1gm/50mL 1 GM/50 ML BAG IVPB PRN (05:50)
[2021-03-26 06:43] LABS: ABG Base Excess 2 mEq/L (-2 to 3); ABG HCO3 33 mEq/L (21-27); ABG Oxygen Saturation 95 % (95-98); ABG PCO2 97 mmHg (35-45); ABG PH 7.14 pH Units (7.32-7.45); ABG PO2 102 mmHg (85-104); ABG TCO2 36 mEq/L (20-26); Blood Gas VT 450 cc
[2021-03-26 07:00] LABS: VBG Ionized Calcium 1.15 mmol/L (1.15-1.35)
[2021-03-26] MEDS: Norepinephrine 4 MG/254 ML IV.SOLN IVC SCH (08:20)
[2021-03-26] MEDS: Pantoprazole 40 MG VIAL IVP SCH (08:33)
[2021-03-26] MEDS: Cholecalciferol (D-3) 1,000 UNIT (25MCG) TABLET PO SCH (08:34)
[2021-03-26] MEDS: Aspirin 81 MG TAB.CHEW PO SCH (08:34)
[2021-03-26] MEDS: lamoTRIgine 25 MG TABLET PO SCH ×2 (08:34→21:25)
[2021-03-26] MEDS: Docusate Oral Soln 100 MG/10 ML UDC GTUBE SCH ×2 (08:34→21:24)
[2021-03-26] MEDS: Gabapentin 300 MG CAPSULE GTUBE SCH ×2 (08:34→21:25)
[2021-03-26] MEDS: Chlorhexidine Rinse 15 ML MOUTHWASH MM SCH ×2 (08:34→21:24)
[2021-03-26] MEDS: Dexamethasone Sodium Phos/PF 10 MG/ML VIAL IVP SCH (08:38)
[2021-03-26] MEDS ORDERED: Insulin DETEMIR 100 UNIT/ML X5UNITS SUBQ SCH (09:00)
[2021-03-26 10:24] LABS: Hemoglobin 11.4 g/dL (11.5-15.4)
[2021-03-26 10:31] LABS: Sodium, Urine 19.3 mEq/L
[2021-03-26 15:30] LABS: Basophils % 0.4 %; Hematocrit 33.5 % (35.3-44.9); Hemoglobin 10.9 g/dL (11.5-15.4); Immature Granulocytes % 1.4 % (0-4); Lymphocytes # 0.5 K/mcL (0.6-4.6); Lymphocytes % 10.7 %; Mean Corpuscular HGB Conc 32.5 g/dL (31.6-35.5); Mean Corpuscular Hemoglobin 32.6 pg (28.0-33.3); Mean Corpuscular Volume 100.3 fL (83.0-100.0); Mean Platelet Volume 11.1 fL (9.4-12.4); Monocytes # 0.7 K/mcL (0.0-1.3); Monocytes % 14.6 %; Platelet Count 192 K/mcL (140-400); Red Blood Count 3.34 M/mcL (3.82-4.97); Red Cell Distribution Width 13.1 % (11.5-14.5); Segmented Neutrophils % 72.9 %; White Blood Count 4.9 K/mcL (4.3-11.1)
[2021-03-26 15:42] LABS: Calcium 7.4 mg/dL (8.6-10.3)
[2021-03-26 15:47] LABS: Neutrophils # 3.6 K/mcL (1.6-8.9)
[2021-03-26 16:24] LABS: Reactive Lymphocytes Present (Not Present)
[2021-03-26] MEDS ORDERED: Clinimix E 5%-15% SOLUTION 2,000 ML with MVI, adult with vitamin K 10 ML, ZN/CU/MN/SE... IVC SCH (17:00)
[2021-03-26] MEDS: Fat Emulsion 250 ML IVPB SCH (18:16)
[2021-03-26 20:56] LABS: Calcium 7.3 mg/dL (8.6-10.3); Potassium 5.4 mEq/L (3.5-5.1)
[2021-03-26] MEDS: *HR* Enoxaparin 40 MG/0.4 ML SYRINGE SQ SCH (21:25)
[2021-03-26] MEDS: QUEtiapine Fumarate 25 MG TABLET PO SCH (21:25)
[2021-03-26] MEDS ORDERED: Insulin Human Regular 10 UNIT in 0.9 % Sodium Chloride 10 ML IV ONE (23:47)
[2021-03-26] MEDS ORDERED: *HR* Dextrose 50 % in Water (Syg) 50 ML SYRINGE IVP ONE (23:48)
[2021-03-26] MEDS ORDERED: Calcium Gluconate 1gm/50mL 1 GM/50 ML BAG IVPB ONE (23:49)
[2021-03-27] MEDS: Midazolam HCl 50 MG/100 ML IV.SOLN IVC SCH ×3 (00:29→20:37)
[2021-03-27] MEDS: Artificial Tears SOLN 15 ML BOTTLE BOTH EYES SCH ×6 (00:55→21:01)
[2021-03-27] MEDS: Insulin LISPRO 300 UNITS/3 ML VIAL SUBQ SCH ×6 (00:55→20:32)
[2021-03-27] MEDS: Cisatracurium 200 MG in 0.9 % Sodium Chloride 180 ML IVC SCH ×3 (02:09→21:23)
[2021-03-27] MEDS: Ipratropium 1 PUFF INHALER IH SCH ×4 (03:02→20:00)
[2021-03-27] MEDS: FentaNYL (PF) 1,000 MCG/100 ML IV.SOLN IVC SCH ×3 (03:27→19:08)
[2021-03-27] MEDS: Dexmedetomidine HCl 400 MCG/100 ML MLS IVC SCH ×5 (03:28→22:12)
[2021-03-27 03:47] LABS: ABG Base Excess -6 mEq/L (-2 to 3); ABG HCO3 27 mEq/L (21-27); ABG Oxygen Saturation 65 % (95-98); ABG PCO2 110 mmHg (35-45); ABG PO2 53 mmHg (85-104); ABG TCO2 30 mEq/L (20-26); Blood Gas VT 450 cc
[2021-03-27 03:57] LABS: Basophils # 0.1 K/mcL (0.0-0.2); Basophils % 1.2 %; Hematocrit 34.5 % (35.3-44.9); Hemoglobin 11.4 g/dL (11.5-15.4); Immature Granulocytes % 3.3 % (0-4); Lymphocytes # 0.7 K/mcL (0.6-4.6); Lymphocytes % 13.8 %; Mean Corpuscular Hemoglobin 33.6 pg (28.0-33.3); Mean Corpuscular Volume 101.8 fL (83.0-100.0); Monocytes # 0.7 K/mcL (0.0-1.3); Neutrophils # 3.6 K/mcL (1.6-8.9); Platelet Count 222 K/mcL (140-400); Red Blood Count 3.39 M/mcL (3.82-4.97); Red Cell Distribution Width 13.1 % (11.5-14.5); Segmented Neutrophils % 68.7 %; White Blood Count 5.2 K/mcL (4.3-11.1)
[2021-03-27 04:14] LABS: Albumin 2.4 g/dL (3.5-5.7); Bilirubin,Direct 0.2 mg/dL (0.0-0.2); Bilirubin,Indirect 0.3 mg/dL (0.0-1.0); Bilirubin,Total 0.5 mg/dL (0.3-1.0); Globulin 2.5 g/dL (2.4-3.5); Total Protein 4.9 g/dL (6.4-8.9)
[2021-03-27 04:21] LABS: Calcium 7.8 mg/dL (8.6-10.3); Magnesium 2.9 mg/dL (1.6-2.6); Potassium 4.9 mEq/L (3.5-5.1)
[2021-03-27 04:30] LABS: Platelet Estimate Normal (Normal); Poikilocytosis 1+ (Not Present); Smudge Cells Present (Not Present); Tear Drop Cells 1+ (Not Present)
[2021-03-27] MEDS: Norepinephrine 4 MG/254 ML IV.SOLN IVC SCH ×4 (05:25→23:46)
[2021-03-27 07:32] LABS: ABG Base Excess -6 mEq/L (-2 to 3); ABG Chloride 100 mEq/L (98-107); ABG Glucose 226 mg/dL (60-95); ABG HCO3 29 mEq/L (21-27); ABG Ionized Calcium 1.21 mmol/L (1.15-1.35); ABG Oxygen Saturation 81 % (95-98); ABG PCO2 131 mmHg (35-45); ABG PH 6.95 pH Units (7.32-7.45); ABG PO2 75 mmHg (85-104); ABG TCO2 33 mEq/L (20-26); Blood Gas Modality ASSIST CONTROL; Blood Gas VT 450 cc
[2021-03-27] MEDS: Docusate Oral Soln 100 MG/10 ML UDC GTUBE SCH ×2 (10:04→20:31)
[2021-03-27] MEDS: Aspirin 81 MG TAB.CHEW PO SCH (10:04)
[2021-03-27] MEDS: Chlorhexidine Rinse 15 ML MOUTHWASH MM SCH ×2 (10:04→20:31)
[2021-03-27] MEDS: lamoTRIgine 25 MG TABLET PO SCH ×2 (10:08→20:31)
[2021-03-27] MEDS: Gabapentin 300 MG CAPSULE GTUBE SCH ×2 (10:09→20:31)
[2021-03-27] MEDS: Cholecalciferol (D-3) 1,000 UNIT (25MCG) TABLET PO SCH (10:09)
[2021-03-27] MEDS: Pantoprazole 40 MG VIAL IVP SCH (10:13)
[2021-03-27] MEDS: *HR* Enoxaparin 40 MG/0.4 ML SYRINGE SQ SCH ×2 (10:14→20:32)
[2021-03-27 10:47] LABS: Blood Urea Nitrogen > 130 mg/dL (8-23); Calcium 7.5 mg/dL (8.6-10.3); Carbon Dioxide 28 mEq/L (23-29); Chloride 98 mEq/L (98-107); Glucose 166 mg/dL (70-105); Potassium 4.7 mEq/L (3.5-5.1); Sodium 134 mEq/L (136-145); eGFR For African Americans 23 (> 60); eGFR For Non-African Americans 19 (> 60)
[2021-03-27 12:19] LABS: ABG Base Excess -2 mEq/L (-2 to 3); ABG Chloride 101 mEq/L (98-107); ABG Glucose 170 mg/dL (60-95); ABG HCO3 29 mEq/L (21-27); ABG Ionized Calcium 1.15 mmol/L (1.15-1.35); ABG Oxygen Saturation 72 % (95-98); ABG PCO2 82 mmHg (35-45); ABG PH 7.15 pH Units (7.32-7.45); ABG PO2 50 mmHg (85-104); ABG TCO2 31 mEq/L (20-26); Blood Gas Modality ASSIST CONTROL
[2021-03-27 16:31] LABS: ABG Base Excess -3 mEq/L (-2 to 3); ABG HCO3 27 mEq/L (21-27); ABG Oxygen Saturation 90 % (95-98); ABG PCO2 71 mmHg (35-45); ABG PH 7.18 pH Units (7.32-7.45); ABG PO2 75 mmHg (85-104); ABG TCO2 29 mEq/L (20-26); Blood Gas Modality ASSIST CONTROL; Blood Gas VT 450 cc
[2021-03-27] MEDS ORDERED: Clinimix 5%-20% SOLUTION 2,000 ML with MVI, adult with vitamin K 10 ML, Sodium Acetat... IVC SCH (17:00)
[2021-03-27] MEDS: QUEtiapine Fumarate 25 MG TABLET PO SCH (20:31)
[2021-03-27 21:17] LABS: Blood Urea Nitrogen > 130 mg/dL (8-23); Carbon Dioxide 25 mEq/L (23-29); Chloride 99 mEq/L (98-107); Glucose 188 mg/dL (70-105); Potassium 5.4 mEq/L (3.5-5.1); Sodium 132 mEq/L (136-145); eGFR For African Americans 22 (> 60); eGFR For Non-African Americans 18 (> 60)
[2021-03-27] MEDS ORDERED: Insulin Human Regular 10 UNIT in 0.9 % Sodium Chloride 10 ML IV ONE (23:10)
[2021-03-27] MEDS ORDERED: *HR* Dextrose 50 % in Water (Syg) 50 ML SYRINGE IVP ONE (23:11)
[2021-03-27] MEDS ORDERED: Calcium Gluconate 1gm/50mL 1 GM/50 ML BAG IVPB ONE (23:12)
[2021-03-28] MEDS: FentaNYL (PF) 1,000 MCG/100 ML IV.SOLN IVC SCH ×2 (00:22→04:54)
[2021-03-28] MEDS: Artificial Tears SOLN 15 ML BOTTLE BOTH EYES SCH ×2 (00:23→05:16)
[2021-03-28 00:47] VITALS: TEMP 96.2
[2021-03-28] MEDS: Insulin LISPRO 300 UNITS/3 ML VIAL SUBQ SCH ×2 (00:56→05:16)
[2021-03-28] MEDS: Midazolam HCl 50 MG/100 ML IV.SOLN IVC SCH (01:39)
[2021-03-28] MEDS: Dexmedetomidine HCl 400 MCG/100 ML MLS IVC SCH ×2 (02:10→04:54)
[2021-03-28] MEDS: Norepinephrine 4 MG/254 ML IV.SOLN IVC SCH ×3 (02:10→04:54)
[2021-03-28] MEDS: Ipratropium 1 PUFF INHALER IH SCH ×2 (03:12→08:10)
[2021-03-28 05:07] VITALS: BP 77/42; PULSE 131; O2SAT 75
== END 2021-03-28 05:54 | disposition expired | DRG 207 ==
LOC: 3NENU → SUATTDRO 04:32 → ICNU 03-22 10:24
PROVIDERS: ADMIT Internal Medicine; ATTEND Internal Medicine